=== PATIENT | female | born 1950 | race Two or more races ===

== ENCOUNTER 2021-02-11 10:06 | Outpatient (CLI) | payer OTHER | END 2021-02-11 10:19 | disposition home or self-care (01) | LOC: SONOGRAMA 10:06 | PROVIDERS: ATTEND Surgery | DX: D05.81 Other specified type of carcinoma in situ of right breast (principal); N60.11 Diffuse cystic mastopathy of right breast; N60.12 Diffuse cystic mastopathy of left breast ==

== ENCOUNTER 2021-03-04 08:10 | Outpatient (CLI) | payer OTHER | END 2021-03-04 08:14 | disposition home or self-care (01) | LOC: NUCLEAR 08:10 | PROVIDERS: ATTEND Internal Medicine Hematology & Oncology | DX: C50.112 Malignant neoplasm of central portion of left female breast (principal); C50.412 Malignant neoplasm of upper-outer quadrant of left female breast; Z17.0 Estrogen receptor positive status [ER+]; C17.3 Meckel's diverticulum, malignant | CPT/HCPCS: 78815; A9552 ==

== ENCOUNTER 2021-05-04 07:13 | Outpatient (CLI) | payer OTHER | END 2021-05-04 07:20 | disposition home or self-care (01) | LOC: MRI 07:13 | PROVIDERS: ATTEND Surgery | DX: G93.89 Other specified disorders of brain (principal); G44.89 Other headache syndrome; C50.412 Malignant neoplasm of upper-outer quadrant of left female breast | CPT/HCPCS: 70551 ==

== ENCOUNTER → 2021-05-20 | Day surgery (SDC) | payer OTHER ==
[~2021-05-20] MED LIST: ATORVASTATIN CA20 MG PO; METFORMIN HCL500 M3 PO; MULTI VITAMIN1 EACH PO; VITAMIN C500 MG PO
== END | disposition home or self-care (01) ==
LOC: ADM 05-19 10:00 → CIR.AMB 05:40
PROVIDERS: ATTEND Surgery
DX: D05.02 Lobular carcinoma in situ of left breast (principal); C77.3 Secondary and unspecified malignant neoplasm of axilla and upper limb lymph nodes

== ENCOUNTER 2021-05-27 08:07 | Outpatient (CLI) | payer OTHER | END 2021-05-27 08:08 | disposition home or self-care (01) | LOC: NUCLEAR 08:07 | PROVIDERS: ATTEND Surgery | DX: I82.503 Chronic embolism and thrombosis of unspecified deep veins of lower extremity, bilateral (principal) ==

== ENCOUNTER 2021-08-16 05:44 | Day surgery (SDC) | payer OTHER | END 2021-08-16 13:45 | disposition home or self-care (01) | LOC: CIR.AMB 05:44 | PROVIDERS: ATTEND Specialist | DX: C50.111 Malignant neoplasm of central portion of right female breast (principal) | CPT/HCPCS: 36561; C1751 ==

== ENCOUNTER 2022-03-03 07:35 | Outpatient (CLI) | payer OTHER | END 2022-03-03 07:40 | disposition home or self-care (01) | LOC: NUCLEAR 07:35 | PROVIDERS: ATTEND Internal Medicine Hematology & Oncology | DX: C50.112 Malignant neoplasm of central portion of left female breast (principal); C50.412 Malignant neoplasm of upper-outer quadrant of left female breast; C77.3 Secondary and unspecified malignant neoplasm of axilla and upper limb lymph nodes; Z88.8 Allergy status to other drugs, medicaments and biological substances | CPT/HCPCS: 78815; A9552 ==

== ENCOUNTER 2022-12-26 05:33 | Day surgery (SDC) | payer OTHER | END 2022-12-26 13:25 | disposition home or self-care (01) | LOC: CIR.AMB 05:33 | PROVIDERS: ATTEND Specialist | DX: C50.111 Malignant neoplasm of central portion of right female breast (principal); Z20.822 Contact with and (suspected) exposure to COVID-19; I10 Essential (primary) hypertension ==